=== PATIENT | female | born 1950 | race Caucasian/White ===

== ENCOUNTER 2019-05-05 14:59 | Emergency (ER) | payer MEDICARE ==
--- NOTE | 2019-05-05 16:28 | CT ---
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 Again noted is a displaced avulsed lesser trochanter fracture which has been retracted. There is a new very minimally to nondisplaced fracture of the greater trochanter which was not present on prior prior CT scan abdomen and pelvis dated 04/18/2019. There is a large amount of joint fluid with some fairly e xtensive calcific or ossific density within the joint. This is probably secondary to a fairly large metastasis with destruction of the overlying bony cortex in the femoral intertrochanteric region IMPRESSION: Displaced fracture of the lesser trochanter with displacement and retraction. New essentially nondisplaced transverse fracture of the greater trochanter. Area of bone destruction involving the posterior medial cortex of the intertrochanteric portion of th e femur. Distended joint effusion with ossific or calcific density material within the joint fluid.
== END 2019-05-05 17:30 | disposition short-term general hospital (02) ==
LOC: MADERS 14:59
DX: S72.121A Displaced fracture of lesser trochanter of right femur, initial encounter for closed fracture (principal); Z87.891 Personal history of nicotine dependence; X50.9XXA Other and unspecified overexertion or strenuous movements or postures, initial encounter
CPT/HCPCS: 72192